=== PATIENT | male | born 2005 | race Caucasian/White ===

== ENCOUNTER 2023-10-25 00:50 | Emergency (ER) | payer OTHER ==
[2023-10-25 01:11] VITALS: BP 122/73; BMI 20.7
[2023-10-25] MEDS ORDERED: ACETAMINOPHEN 500 MG TABLET (FP) PO ONE (01:39)
[2023-10-25] MEDS ORDERED: ACETAMINOPHEN 325 MG TABLET (FP) ONE (01:47)
[2023-10-25 03:27] VITALS: PULSE 97; RESP 18; TEMP 98.4
== END 2023-10-25 03:59 | disposition home or self-care (01) ==
LOC: JER 00:50
DX: J02.9 Acute pharyngitis, unspecified (principal); R05.9 Cough, unspecified; R50.9 Fever, unspecified; R51.9 Headache, unspecified; R00.0 Tachycardia, unspecified; U07.1 COVID-19
CPT/HCPCS: 0241U-QW; 87651; 99283-25